=== PATIENT | female | born 1965 | race Caucasian/White ===

== ENCOUNTER 2023-09-17 20:18 | Emergency (ER) | payer MEDICARE ==
[~2023-09-17] VITALS: Ht 170.2 cm; Wt 70.0 kg
[2023-09-17 20:35] VITALS: BP 125/60; PULSE 76; RESP 18; TEMP 98.1
== END 2023-09-17 22:53 | disposition left against medical advice (07) ==
LOC: EMS 20:20
DX: S61.432A Puncture wound without foreign body of left hand, initial encounter (principal); Z53.21 Procedure and treatment not carried out due to patient leaving prior to being seen by health care provider; W54.0XXA Bitten by dog, initial encounter; Y93.89 Activity, other specified; Y92.89 Other specified places as the place of occurrence of the external cause; Y99.8 Other external cause status
CPT/HCPCS: 99281; Z7502